=== PATIENT | female | born 1990 | race American Indian/Alaskan Native ===

== ENCOUNTER 2017-10-06 08:28 | Emergency (ER) | payer OTHER ==
[2017-10-06] MEDS ORDERED: NORVASC PO ONE (10:42)
[2017-10-06] MEDS ORDERED: TYLENOL PO ONE (10:42)
--- NOTE | 2017-10-06 11:09 | Emergency Department Report ---
- General Chief Complaint: Upper Respiratory Infection Stated Complaint: FLU LIKE SYMPTOMS Time Seen by Provider: 10/06/17 10:21 Source: patient Mode of arrival: Ambulatory Limitations: No Limitations - History of Present Illness Initial Comments: 27-year-old female past medical history hypertension presents with complaint of one day of fever chills cough sinus congestion. Increased urinary frequency reported. Patient also complaining of body aches. She states she has not taken her blood pressure medication in over a year. Patient is awake alert and oriented 3 denies palpitations, possible slight pleurisy with shortness of breath. States she has chest pain after coughing fits. He is awake alert and oriented 3 fully lucid. No audible wheezing or stridor noted on exam. Patient is accompanied by boyfriend. Patient states she does smoke cigarettes. Denies any personal history of PEs or DVT. Denies being on any control or hormone medications. Possible sick contacts at work as per patient MD Complaint: cough, rhinorrhea, nasal congestion Onset/Timin -: days(s) Severity: moderate Severity scale (0 -10): 5 Consistency: constant Worsens With: nothing Associated Symptoms: fever, chills, myalgias, rhinorrhea, nasal congestion, sore throat, cough, chest pain - Related Data Previous Rx's Medication Instructions Recorded Last Taken Type ALBUTEROL Inhaler [ProAir HFA 1 puff IH Q4H PRN #1 inha 10/06/17 Unknown Rx Inhaler] Acetaminophen [Acetaminophen TAB] 500 mg PO Q6HR PRN #20 tablet 10/06/17 Unknown Rx Azithromycin [Zithromax Z-VIGNESH] 250 mg PO QDAY #1 pack 10/06/17 Unknown Rx amLODIPine [Norvasc] 5 mg PO DAILY #30 tab 10/06/17 Unknown Rx Allergies Allergy/AdvReac Type Severity Reaction Status Date / Time No Known Allergies Allergy Unverified 10/06/17 08:31 ED Review of Systems ROS: Stated complaint: FLU LIKE SYMPTOMS Other details as noted in HPI Constitutional: malaise. denies: chills, fever Eyes: denies: eye pain, eye discharge, vision change ENT: denies: ear pain, throat pain Respiratory: cough. denies: shortness of breath, wheezing Cardiovascular: denies: chest pain, palpitations Endocrine: no symptoms reported Gastrointestinal: denies: abdominal pain, nausea, diarrhea Genitourinary: denies: urgency, dysuria, discharge Musculoskeletal: denies: back pain, joint swelling, arthralgia Skin: denies: rash, lesions Neurological: denies: headache, weakness, paresthesias Psychiatric: denies: anxiety, depression Hematological/Lymphatic: denies: easy bleeding, easy bruising ED Past Medical Hx - Past Medical History Previous Medical History?: Yes Hx Hypertension: Yes - Surgical History Past Surgical History?: No - Social History Smoking Status: Current Every Day Smoker Substance Use Type: Alcohol - Medications Home Medications: Home Medications Medication Instructions Recorded Confirmed Last Taken Type ALBUTEROL Inhaler [ProAir HFA 1 puff IH Q4H PRN #1 inha 10/06/17 Unknown Rx Inhaler] Acetaminophen [Acetaminophen TAB] 500 mg PO Q6HR PRN #20 tablet 10/06/17 Unknown Rx Azithromycin [Zithromax Z-VIGNESH] 250 mg PO QDAY #1 pack 10/06/17 Unknown Rx amLODIPine [Norvasc] 5 mg PO DAILY #30 tab 10/06/17 Unknown Rx ED Physical Exam - General Limitations: No Limitations General appearance: alert, in no apparent distress - Head Head exam: Present: atraumatic, normocephalic - Eye Eye exam: Present: normal appearance, PERRL, EOMI - ENT ENT exam: Present: mucous membranes moist - Neck Neck exam: Present: normal inspection - Respiratory Respiratory exam: Present: normal lung sounds bilaterally. Absent: respiratory distress - Cardiovascular Cardiovascular Exam: Present: regular rate, normal rhythm. Absent: systolic murmur, diastolic murmur, rubs, gallop - GI/Abdominal GI/Abdominal exam: Present: soft, normal bowel sounds - Extremities Exam Extremities exam: Present: normal inspection - Back Exam Back exam: Present: normal inspection - Neurological Exam Neurological exam: Present: alert, oriented X3, CN II-XII intact, normal gait - Psychiatric Psychiatric exam: Present: normal affect, normal mood - Skin Skin exam: Present: warm, dry, intact, normal color. Absent: rash ED Course Vital Signs 10/06/17 10/06/17 10/06/17 08:31 10:54 10:56 Temperature 99.6 F 99.3 F Pulse Rate 122 H 118 H 118 H Respiratory 18 18 Rate Blood Pressure 164/115 181/128 Blood Pressure 181/128 [Left] O2 Sat by Pulse 99 100 Oximetry 10/06/17 12:22 Temperature Pulse Rate 90 Respiratory Rate Blood Pressure Blood Pressure 161/110 [Left] O2 Sat by Pulse Oximetry ED Medical Decision Making - Lab Data Result diagrams: 10/06/17 11:42 10/06/17 11:42 - Medical Decision Making A/P: Left lung atelectasis, viral syndrome, possible early pneumonia, hypertension 1-this patient is tachycardic with respiratory symptoms and possible pleurisy I considered possibility of PE. Patient states that she must leave due to personal matters that she must attend to at this time. I warned patient that undiagnosed PE is potentially life-threatening. Pt allowed us to send d-dimer but did not wait for results. Patient stated she understood. Patient signed out AGAINST MEDICAL ADVICE. Stated she would come back at her earliest convenience, this was witnessed by her family member at bedside and nursing staff. After pt left I called her at number listed and informed her of +d-dimer and that she should return to the ED [facility] for further evaluation including advanced imaging of her lungs for possible suspect PE. pt stated she would come back [facility]. I urged her to do so. 2-will treat patient empirically with azithromycin for community-acquired pneumonia, Tylenol when necessary, albuterol inhaler, Claritin 3-will give patient prescription for low-dose amlodipine. Aspirin ACEP guidelines patient can follow up with primary care for HTN [email or web address] Critical care attestation.: If time is entered above; I have spent that time in minutes in the direct care of this critically ill patient, excluding procedure time. ED Disposition Clinical Impression: Tachycardia, Atelectasis of left lung, Left against medical advice Disposition: LEFT AGAINST MED ADVICE Is pt being admited?: No Does the pt Need Aspirin: No Condition: Undetermined Instructions: Atrial Tachycardia (ED), Against Medical Advice (ED), Pneumonia ( ED) Prescriptions: Acetaminophen [Acetaminophen TAB] 500 mg PO Q6HR PRN #20 tablet PRN Reason: Pain ALBUTEROL Inhaler [ProAir HFA Inhaler] 1 puff IH Q4H PRN #1 inha PRN Reason: Wheezing amLODIPine [Norvasc] 5 mg PO DAILY #30 tab Azithromycin [Zithromax Z-VIGNESH] 250 mg PO QDAY #1 pack Referrals: CHELY VIDAL MD [Primary Care Provider] - 3-5 Days [facility] [Outside] - 3-5 Days [facility] [Outside] - 3-5 Days Forms: AMA Form Time of Disposition: 13:07
[2017-10-06 11:18] LABS: Bacteria,Urine 1+ /HPF (Negative); Bilirubin,Urine NEG (Negative); Blood,Urine NEG (Negative); Color,Urine Yellow (Yellow); Mucus,Urine FEW /HPF; Urobilinogen,Urine < 2.0 mg/dL (<2.0)
[2017-10-06 11:20] LABS: HCG Qualitative,Urine Negative (Negative)
[2017-10-06 12:07] LABS: Basophils % (Auto) 0.4 % (0.0-1.8); Eosinophils % (Auto) 0.5 % (0.0-4.3); Hematocrit 39.9 % (30.3-42.9); Hemoglobin 12.6 gm/dl (10.1-14.3); Lymphocytes # (Auto) 0.6 K/mm3 (1.2-5.4); Lymphocytes % (Auto) 7.2 % (13.4-35.0); Mean Corpuscular HGB Conc 32 % (30-34); Mean Corpuscular Volume 77 fl (79-97); Monocytes # (Auto) 0.6 K/mm3 (0.0-0.8); Monocytes % (Auto) 7.2 % (0.0-7.3); Platelet Count 266 K/mm3 (140-440); Red Cell Distribution Width 15.8 % (13.2-15.2)
[2017-10-06 12:18] LABS: BUN/Creatinine Ratio 9; Blood Urea Nitrogen 7 mg/dL (7-17); Hemolysis Index 1; Mean Corpuscular Hemoglobin 24 pg (28-32)
[2017-10-06 12:22] VITALS: BP 161/110
--- NOTE | 2017-10-06 12:27 | XRay Report ---
ROUTINE CHEST, TWO VIEWS: HISTORY: Worsening cough. No comparison. A subtle left lower lobe opacity is identified which is most consistent with segmental atelectasis. The lungs are clear otherwise. No pleural effusion or pneumothorax. Normal heart and mediastinal structures. The bony structures are grossly intact. IMPRESSION: Left lower lobe opacity most consistent with segmental atelectasis.
== END 2017-10-06 13:28 | disposition left against medical advice (07) ==
LOC: ED 08:28
DX: J98.11 Atelectasis (principal); R00.0 Tachycardia, unspecified; I10 Essential (primary) hypertension; F17.200 Nicotine dependence, unspecified, uncomplicated
CPT/HCPCS: 36415; 71046; 80048; 81001; 81025; 82550; 82805; 85025; 85379; 87400; 99284

== ENCOUNTER 2017-10-07 06:13 | Emergency (ER) | payer OTHER ==
--- NOTE | 2017-10-07 07:50 | Cat Scan Report ---
FINAL REPORT EXAM: CT ANGIO CHEST HISTORY: elevated D dimmer TECHNIQUE: CT imaging obtained through the chest in pulmonary angiographic phase following intravenous administration of contrast. Transaxial, Coronal and sagittal reformats with maximal intensity projections are provided. PRIORS: None. FINDINGS: Normal caliber main pulmonary artery. Well opacified pulmonary arterial tree. No pulmonary embolism. No pericardial effusion. Thoracic aorta is normal in course and caliber. No periaortic fluid or stranding. No pneumothorax or focal airspace disease. Small left pleural effusion. Linear atelectasis/scarring at the left lung base. There is mild peribronchial soft tissue thickening and scattered posterior left lower lung tree-in-bud nodularity (Axial series 2, images 53-61.) The central airways are patent. No bronchiectasis. Imaged portion of the upper abdomen is unremarkable. The superficial soft tissues are unremarkable. No acute bony abnormality or worrisome osseous lesions identified. IMPRESSION: No pulmonary embolism. Peribronchial soft tissue thickening, small left pleural effusion and posterior left lower lung tree-in-bud nodularity are all most consistent with infection.
--- NOTE | 2017-10-07 08:55 | Emergency Department Report ---
ED General Adult HPI - General Chief complaint: High BP Stated complaint: CAT SCAN/EGK Source: patient Mode of arrival: Ambulatory Limitations: No Limitations - History of Present Illness Initial comments: The patient was given a prescription for a azithromycin yesterday but did not get it filled. She was hypertensive yesterday. I do not see that she was given a prescription for high blood pressure. She had a minimally elevated d- dimer which must have been checked prior to her leaving. She was called back for a CT angiogram which was negative. Patient complains to me that she has had chronic sinus problems. She appears to be congested. She states that she is coughing up some clear material but no hemoptysis. She does not complain of dyspnea. She states that she was given an inhaler when she was 6 years old but is not currently wheezing with this illness. She is in no distress. She admits that she did not get her prescriptions yet. -: days(s) Location: head (sinus congestion) Radiation: non-radiation Severity scale (0 -10): 0 Quality: other Consistency: intermittent Improves with: none Worsens with: none Associated Symptoms: denies other symptoms Treatments Prior to Arrival: other (discharged yesterday) - Related Data Previous Rx's Medication Instructions Recorded Last Taken Type ALBUTEROL Inhaler [ProAir HFA 1 puff IH Q4H PRN #1 inha 10/06/17 Unknown Rx Inhaler] Acetaminophen [Acetaminophen TAB] 500 mg PO Q6HR PRN #20 tablet 10/06/17 Unknown Rx Azithromycin [Zithromax Z-VIGNESH] 250 mg PO QDAY #1 pack 10/06/17 Unknown Rx amLODIPine [Norvasc] 5 mg PO DAILY #30 tab 10/06/17 Unknown Rx Amlodipine Besylate [Norvasc] 5 mg PO DAILY #30 tablet 10/07/17 Unknown Rx Allergies Allergy/AdvReac Type Severity Reaction Status Date / Time No Known Allergies Allergy Unverified 10/06/17 08:31 ED Review of Systems ROS: Stated complaint: CAT SCAN/EGK Other details as noted in HPI Constitutional: denies: chills, fever Eyes: denies: eye pain, eye discharge, vision change ENT: denies: ear pain, throat pain Respiratory: cough. denies: wheezing Cardiovascular: denies: chest pain, palpitations Endocrine: no symptoms reported Gastrointestinal: denies: abdominal pain, nausea, diarrhea Genitourinary: denies: urgency, dysuria, discharge Musculoskeletal: denies: back pain, joint swelling, arthralgia Skin: denies: rash, lesions Neurological: denies: headache, weakness, paresthesias Psychiatric: denies: anxiety, depression Hematological/Lymphatic: denies: easy bleeding, easy bruising ED Past Medical Hx - Past Medical History Previous Medical History?: Yes Hx Hypertension: Yes - Surgical History Past Surgical History?: No - Social History Smoking Status: Current Every Day Smoker Substance Use Type: Alcohol, Marijuana - Medications Home Medications: Home Medications Medication Instructions Recorded Confirmed Last Taken Type ALBUTEROL Inhaler [ProAir HFA 1 puff IH Q4H PRN #1 inha 10/06/17 Unknown Rx Inhaler] Acetaminophen [Acetaminophen TAB] 500 mg PO Q6HR PRN #20 tablet 10/06/17 Unknown Rx Azithromycin [Zithromax Z-VIGNESH] 250 mg PO QDAY #1 pack 10/06/17 Unknown Rx amLODIPine [Norvasc] 5 mg PO DAILY #30 tab 10/06/17 Unknown Rx Amlodipine Besylate [Norvasc] 5 mg PO DAILY #30 tablet 10/07/17 Unknown Rx ED Physical Exam - General Limitations: No Limitations General appearance: alert, in no apparent distress - Head Head exam: Present: atraumatic, normocephalic - Eye Eye exam: Present: normal appearance. Absent: scleral icterus - ENT ENT exam: Present: mucous membranes moist, other (sinus congestion and no swelling no tenderness no redness) - Neck Neck exam: Present: normal inspection. Absent: tenderness, meningismus - Respiratory Respiratory exam: Present: normal lung sounds bilaterally. Absent: respiratory distress - Cardiovascular Cardiovascular Exam: Present: regular rate, normal rhythm. Absent: systolic murmur, diastolic murmur, rubs, gallop - GI/Abdominal GI/Abdominal exam: Present: soft, normal bowel sounds. Absent: distended, tenderness, guarding, rebound, rigid - Extremities Exam Extremities exam: Present: normal inspection, full ROM, normal capillary refill. Absent: tenderness, pedal edema, joint swelling, calf tenderness - Back Exam Back exam: Present: normal inspection - Neurological Exam Neurological exam: Present: alert, oriented X3, CN II-XII intact. Absent: motor sensory deficit - Psychiatric Psychiatric exam: Present: normal affect, normal mood - Skin Skin exam: Present: warm, dry, intact, normal color. Absent: rash ED Course Vital Signs 10/07/17 10/07/17 10/07/17 06:19 08:08 08:16 Temperature 97.4 F L Pulse Rate 97 H 85 Respiratory 18 16 32 H Rate Blood Pressure 155/108 161/111 O2 Sat by Pulse 100 99 98 Oximetry 10/07/17 08:19 Temperature 98.6 F Pulse Rate Respiratory Rate Blood Pressure O2 Sat by Pulse Oximetry - Reevaluation(s) Reevaluation #1: Patient started on Norvasc and given a gram of ceftriaxone. She is appropriate for outpatient disposition. The importance of filling her prescriptions as emphasized. 10/07/17 09:01 ED Medical Decision Making - Radiology Data Radiology results: report reviewed (no PE sounds like pneumonitis to me) Critical care attestation.: If time is entered above; I have spent that time in minutes in the direct care of this critically ill patient, excluding procedure time. ED Disposition Clinical Impression: Pneumonitis, Essential hypertension Sinusitis Qualifiers: Sinusitis location: unspecified location Chronicity: acute Recurrence: recurrent Qualified Code(s): J01.91 - Acute recurrent sinusitis, unspecified Disposition: -01 TO HOME OR SELFCARE Is pt being admited?: No Does the pt Need Aspirin: No Condition: Stable Instructions: Hypertension (ED), Pneumonia (ED) Additional Instructions: Failure prior prescriptions. Azythromycin is an antibiotic. The inhaler is only necessary if you have wheezing. A set of Beatrice Salcido is a medicine over-the- counter it is just Tylenol. It is cheaper [id number]. I have written a new prescription for blood pressure medicine. Follow-up options are listed Prescriptions: Amlodipine Besylate [Norvasc] 5 mg PO DAILY #30 tablet Referrals: CHELY VIDAL MD [Primary Care Provider] - 3-5 Days [facility] [Provider Group] - 3-5 Days Time of Disposition: 09:05
[2017-10-07] MEDS ORDERED: ROCEPHIN/NS 1 GM/50 ML 1 GM/50 ML BAG IV ONE (08:57)
[2017-10-07] MEDS ORDERED: NORVASC PO ONE (08:57)
[2017-10-07] MEDS ORDERED: cefTRIAXone 1 GM in NACL 0.9% 20 ML IV ONE (09:15)
[2017-10-07] MEDS ORDERED: NORMODYNE IV ONE ×3 (10:28→11:11)
[2017-10-07 11:58] VITALS: BP 161/118
== END 2017-10-07 12:20 | disposition home or self-care (01) ==
LOC: ED 06:13
DX: J18.9 Pneumonia, unspecified organism (principal); J01.91 Acute recurrent sinusitis, unspecified; I10 Essential (primary) hypertension; F17.200 Nicotine dependence, unspecified, uncomplicated; F12.10 Cannabis abuse, uncomplicated
CPT/HCPCS: 71275; 93005; 93010; 96374; 96375; 96376; 99284; J0696; Q9967

== ENCOUNTER 2019-09-13 10:17 | Emergency (ER) | payer SELFPAY ==
[2019-09-13 10:24] VITALS: BP 150/102
--- NOTE | 2019-09-13 14:59 | Emergency Department Report ---
ED General Adult HPI - General Chief complaint: Headache Stated complaint: HEADACHES,BP HIGH Time Seen by Provider: 09/13/19 14:06 Source: patient Mode of arrival: Ambulatory Limitations: No Limitations - History of Present Illness Initial comments: 29-year-old -[place] female patient with history of hypertension presents with complaint of intermittent headaches for the past 3 days. She rates her current headache as a 2/10 in severity and states it improved with ibuprofen. Patient states the headaches are due to her being out of her blood pressure medication. She reports she has been taking losartan and hydrochlorothiazide for the past 2 years and due to lack of insurance has not been able to get a refill. She denies any vision changes, chest pain, shortness of breath, numbness/tingling/weakness in her limbs, difficulty with speech/ambulation, or dizziness. - Related Data Previous Rx's Medication Instructions Recorded Last Taken Type Acetaminophen [Acetaminophen TAB] 500 mg PO Q6HR PRN #20 tablet 10/06/17 Unknown Rx Albuterol INH(or & Nicu Only) 1 puff IH Q4H PRN #1 inha 10/06/17 Unknown Rx [ProAir HFA Inhaler] Azithromycin [Zithromax Z-VIGNESH] 250 mg PO QDAY #1 pack 10/06/17 Unknown Rx amLODIPine 5 mg PO DAILY #30 tab 10/06/17 Unknown Rx Amlodipine Besylate [Norvasc] 5 mg PO DAILY #30 tablet 10/07/17 Unknown Rx Losartan/Hydrochlorothiazide 1 each PO QDAY 30 Days #30 tablet 09/13/19 Unknown Rx [Losartan-Hctz 100-25 mg Tab] Allergies Allergy/AdvReac Type Severity Reaction Status Date / Time No Known Allergies Allergy Unverified 10/06/17 08:31 ED Review of Systems ROS: Stated complaint: HEADACHES,BP HIGH Other details as noted in HPI Constitutional: denies: chills, fever Eyes: denies: eye pain, vision change Respiratory: denies: cough, shortness of breath Cardiovascular: denies: chest pain Gastrointestinal: denies: abdominal pain Musculoskeletal: denies: back pain Skin: denies: rash, lesions Neurological: headache. denies: numbness, paresthesias, confusion, abnormal gait, vertigo ED Past Medical Hx - Past Medical History Previous Medical History?: Yes Hx Hypertension: Yes - Surgical History Past Surgical History?: No - Social History Smoking Status: Current Every Day Smoker Substance Use Type: Alcohol, Marijuana - Medications Home Medications: Home Medications Medication Instructions Recorded Confirmed Last Taken Type Acetaminophen [Acetaminophen TAB] 500 mg PO Q6HR PRN #20 tablet 10/06/17 Unknown Rx Albuterol INH(or & Nicu Only) 1 puff IH Q4H PRN #1 inha 10/06/17 Unknown Rx [ProAir HFA Inhaler] Azithromycin [Zithromax Z-VIGNESH] 250 mg PO QDAY #1 pack 10/06/17 Unknown Rx amLODIPine 5 mg PO DAILY #30 tab 10/06/17 Unknown Rx Amlodipine Besylate [Norvasc] 5 mg PO DAILY #30 tablet 10/07/17 Unknown Rx Losartan/Hydrochlorothiazide 1 each PO QDAY 30 Days #30 tablet 09/13/19 Unknown Rx [Losartan-Hctz 100-25 mg Tab] ED Physical Exam - General Limitations: No Limitations General appearance: alert, in no apparent distress - Head Head exam: Present: atraumatic, normocephalic - Eye Eye exam: Present: normal appearance, PERRL, EOMI - ENT ENT exam: Present: mucous membranes moist - Neck Neck exam: Present: normal inspection - Respiratory Respiratory exam: Present: normal lung sounds bilaterally. Absent: respiratory distress - Cardiovascular Cardiovascular Exam: Present: regular rate, normal rhythm. Absent: systolic murmur, diastolic murmur, rubs, gallop - Extremities Exam Extremities exam: Present: normal inspection - Neurological Exam Neurological exam: Present: alert, oriented X3, CN II-XII intact, normal gait. Absent: motor sensory deficit - Expanded Neurological Exam Expanded Cerebellar function: Finger to Nose: Normal, Heel to Hancock: Normal, Romberg: Normal Motor strength exam: RUE: 5, LUE: 5, RLE: 5, LLE: 5 - Psychiatric Psychiatric exam: Present: normal affect, normal mood - Skin Skin exam: Present: warm, dry, intact, normal color. Absent: rash ED Course Vital Signs 09/13/19 09/13/19 10:20 15:16 Temperature 98.4 F 98.4 F Pulse Rate 122 H 101 H Respiratory 22 20 Rate Blood Pressure 150/102 O2 Sat by Pulse 99 100 Oximetry ED Medical Decision Making - Medical Decision Making Patient here for intermittent headaches due to being out of her blood pressure medication. Neuro exam is normal. She denies any red flag symptoms. She is nontoxic-appearing. Vitals are stable. Refill given for her BP meds. She patient to follow-up with Dr. Melara for further assessment and treatment within 7 days. Discussed strict return precautions in detail with patient who verbalizes understanding. Critical care attestation.: If time is entered above; I have spent that time in minutes in the direct care of this critically ill patient, excluding procedure time. ED Disposition Clinical Impression: Uncontrolled hypertension, Intermittent headache Disposition: DC- TO HOME OR SELFCARE Is pt being admited?: No Condition: Stable Instructions: Acute Headache (ED), Hypertension (ED) Prescriptions: Losartan/Hydrochlorothiazide [Losartan-Hctz 100-25 mg Tab] 1 each PO QDAY 30 Days #30 tablet Referrals: GABRIEL MELARA MD [Staff Physician] - 3-5 Days
== END 2019-09-13 15:17 | disposition home or self-care (01) ==
LOC: ED 10:17
DX: I10 Essential (primary) hypertension (principal); F17.200 Nicotine dependence, unspecified, uncomplicated; Z79.899 Other long term (current) drug therapy
CPT/HCPCS: 99282